=== PATIENT | female | born 1965 | race Asian ===

== ENCOUNTER 2019-12-26 02:53 | Inpatient (IN) | payer MEDICAID ==
[~2019-12-26] VITALS: Ht 157.5 cm; Wt 65.0 kg
[2019-12-26] MEDS ORDERED: LORazepam 2 MG TABLET PO PRN (03:45)
[2019-12-26] MEDS ORDERED: ZOLPIDEM TARTRATE 10 MG TABLET PO PRN (03:45)
[2019-12-26] MEDS ORDERED: HALOPERIDOL 5 MG TABLET PO PRN (03:45)
[2019-12-26 04:00] VITALS: BP 131/86
[2019-12-26] MEDS ORDERED: INFLUENZA VIRUS VACCINE QVS 2020-21 (6MO+)/PF 60 MCG/0.5 ML SYRINGE IM ONE (07:30)
[2019-12-26] MEDS ORDERED: MAGNESIUM HYDROXIDE SUSPENSION 30 ML UDCUP PO PRN (07:45)
[2019-12-26] MEDS ORDERED: NICOTINE 14 MG/24 HOUR PATCH TD PRN (07:45)
[2019-12-26] MEDS ORDERED: MAG HYDROX/AL HYDROX/SIMETH ES 30 ML SUSPENSION UDCUP PO PRN (07:45)
[2019-12-26] MEDS ORDERED: IBUPROFEN 400 MG TABLET PO PRN (07:45)
[2019-12-26] MEDS ORDERED: ACETAMINOPHEN 325 MG TABLET PO PRN (07:45)
[2019-12-26] MEDS ORDERED: CloNIDine HCL 0.1 MG TABLET PO PRN (07:45)
[2019-12-26] MEDS ORDERED: ONDANSETRON HCL 4 MG TABLET PO PRN (07:45)
[2019-12-26] MEDS ORDERED: PETROLATUM,WHITE 28 GM JELLY TP PRN (07:45)
[2019-12-26] MEDS ORDERED: GuaiFENesin/D-METHORPHAN [SUGAR-FREE] 200-20MG/10 ML SYRUP UDCUP PO PRN (07:45)
[2019-12-26] MEDS ORDERED: ALBUTEROL SULFATE HFA 90 MCG/PUFF 8 GM INHALER IH PRN (07:45)
[2019-12-26] MEDS: CEPHALEXIN MONOHYDRATE 500 MG CAPSULE PO SCH ×3 (08:57→16:52)
[2019-12-26] MEDS: CITALOPRAM HYDROBROMIDE 10 MG TABLET PO SCH (12:56)
[2019-12-26] MEDS ORDERED: HYPROMELLOSE 0.5% 15 ML OPHTHALMIC SOLUTION OU PRN (14:00)
[2019-12-27 07:44] LABS: BASOPHILS % (AUTO) 1.4 % (0.0-2.0); EOSINOPHILS % (AUTO) 2.4 % (1.0-6.0); HEMATOCRIT 41.6 % (36-46); LYMPHOCYTES % (AUTO) 28.3 % (22.0-44.0); MEAN CORPUSCULAR HEMOGLOBIN 30.6 pg (26.0-34.0); MEAN CORPUSCULAR HGB CONC 33.5 G/dL (31.0-37.0); MEAN CORPUSCULAR VOLUME 91 fL (80-100); MONOCYTES # (AUTO) 0.5 K/uL (0.1-1.0); MONOCYTES % (AUTO) 6.7 % (2.0-9.0); NEUTROPHILS # (AUTO) 4.3 K/uL (1.8-7.7); NEUTROPHILS % (AUTO) 61.2 % (40.0-70.0); PLATELET COUNT (AUTO) 342 K/uL (150-450); RED BLOOD CELL COUNT(AUTO) 4.57 MIL/uL (4.00-5.20); RED CELL DISTRIBUTION WIDTH 13.1 % (11.5-14.5)
[2019-12-27 08:07] LABS: ALANINE AMINOTRANSFERASE 46 U/L (12-78); ALBUMIN 3.7 g/dL (3.4-5.0); ALKALINE PHOSPHATASE 125 U/L (46-116); ANION GAP 8 mmol/L (8-16); ASPARTATE AMINOTRANSFERASE 22 U/L (15-37); BILIRUBIN,TOTAL 1.2 mg/dL (0.1-1.0); CALCIUM, TOTAL 8.3 mg/dL (8.8-10.5); CARBON DIOXIDE 25 mmol/L (22-29); CHLORIDE 106 mmol/L (98-107); CHOL/HDL RATIO 5.3 (3.9-5.7); CHOLESTEROL 207 mg/dL (131-200); CREATININE 0.88 mg/dL (0.60-1.30); GLOMERULAR FILTR. RATE CALC > 60 mL/min (>60); GLUCOSE,RANDOM 102 mg/dL (70-110); HDL CHOLESTEROL 39 mg/dL (40-60); LDL CHOL (CALC.) 148 mg/dL (0-130); POTASSIUM 4.1 mmol/L (3.5-5.1); SODIUM SERUM 139 mmol/L (136-145); TOTAL PROTEIN, SERUM 6.8 g/dL (6.4-8.2); TRIGLYCERIDES 102 mg/dL (15-150); UREA NITROGEN, BLOOD 29 mg/dL (7-18)
[2019-12-27 08:31] LABS: FREE T4 (FREE THYROXINE) 0.94 ng/dL (0.76-1.46); THYROID STIMULATING HORMONE 0.94 uIU/mL (0.36-3.74)
[2019-12-27] MEDS: CITALOPRAM HYDROBROMIDE 10 MG TABLET PO SCH (08:39)
[2019-12-27] MEDS: CEPHALEXIN MONOHYDRATE 500 MG CAPSULE PO SCH ×3 (08:39→16:50)
[2019-12-28] MEDS: CITALOPRAM HYDROBROMIDE 10 MG TABLET PO SCH (09:43)
[2019-12-28] MEDS: CEPHALEXIN MONOHYDRATE 500 MG CAPSULE PO SCH ×3 (09:43→16:26)
[2019-12-29] MEDS: CITALOPRAM HYDROBROMIDE 10 MG TABLET PO SCH (08:10)
[2019-12-29] MEDS: CEPHALEXIN MONOHYDRATE 500 MG CAPSULE PO SCH ×3 (08:10→16:54)
[2019-12-29] MEDS: DiphenhydrAMINE HCL 25 MG CAPSULE PO SCH (16:54)
[2019-12-30 08:40] VITALS: BP 108/67
[2019-12-30] MEDS: CEPHALEXIN MONOHYDRATE 500 MG CAPSULE PO SCH ×3 (10:24→16:40)
[2019-12-30] MEDS: DiphenhydrAMINE HCL 25 MG CAPSULE PO SCH ×2 (10:24→16:40)
[2019-12-30] MEDS: CITALOPRAM HYDROBROMIDE 10 MG TABLET PO SCH (10:24)
[2019-12-31] MEDS: DiphenhydrAMINE HCL 25 MG CAPSULE PO SCH ×2 (08:37→16:17)
[2019-12-31] MEDS: CITALOPRAM HYDROBROMIDE 20 MG TABLET PO SCH (08:37)
[2020-01-01] MEDS: CITALOPRAM HYDROBROMIDE 20 MG TABLET PO SCH (08:21)
[2020-01-01] MEDS: DiphenhydrAMINE HCL 25 MG CAPSULE PO SCH ×2 (08:21→16:41)
[2020-01-02] MEDS: CITALOPRAM HYDROBROMIDE 20 MG TABLET PO SCH (09:00)
[2020-01-02] MEDS: DiphenhydrAMINE HCL 25 MG CAPSULE PO SCH ×2 (09:00→16:26)
[2020-01-02 16:21] VITALS: BP 130/76
[2020-01-03] MEDS: DiphenhydrAMINE HCL 25 MG CAPSULE PO SCH ×2 (08:27→16:10)
[2020-01-03] MEDS: CITALOPRAM HYDROBROMIDE 20 MG TABLET PO SCH (08:27)
[2020-01-04] MEDS: CITALOPRAM HYDROBROMIDE 20 MG TABLET PO SCH (08:35)
[2020-01-04] MEDS: DiphenhydrAMINE HCL 25 MG CAPSULE PO SCH ×2 (08:35→17:03)
[2020-01-05 08:24] VITALS: BP 109/68
[2020-01-05] MEDS: CITALOPRAM HYDROBROMIDE 20 MG TABLET PO SCH (08:38)
[2020-01-05] MEDS: DiphenhydrAMINE HCL 25 MG CAPSULE PO SCH ×2 (08:38→16:22)
[2020-01-06] MEDS: DiphenhydrAMINE HCL 25 MG CAPSULE PO SCH ×2 (09:07→16:06)
[2020-01-06] MEDS: CITALOPRAM HYDROBROMIDE 20 MG TABLET PO SCH (09:07)
[2020-01-07] MEDS: CITALOPRAM HYDROBROMIDE 20 MG TABLET PO SCH (08:40)
[2020-01-07] MEDS: DiphenhydrAMINE HCL 25 MG CAPSULE PO SCH ×2 (08:40→16:33)
[2020-01-08] MEDS: CITALOPRAM HYDROBROMIDE 20 MG TABLET PO SCH (08:09)
[2020-01-08] MEDS: DiphenhydrAMINE HCL 25 MG CAPSULE PO SCH ×2 (08:09→16:31)
[2020-01-08] MEDS: CIPROFLOXACIN HCL 0.3% 3.5 GM OPHTHALMIC OINTMENT OD SCH ×3 (10:02→16:32)
[2020-01-09] MEDS: DiphenhydrAMINE HCL 25 MG CAPSULE PO SCH ×2 (09:01→16:48)
[2020-01-09] MEDS: CITALOPRAM HYDROBROMIDE 20 MG TABLET PO SCH (09:01)
[2020-01-09] MEDS: CIPROFLOXACIN HCL 0.3% 3.5 GM OPHTHALMIC OINTMENT OD SCH ×3 (10:49→16:49)
[2020-01-09] MEDS: HYDROCORTISONE 1% 30 GM OINTMENT TP SCH (16:48)
[2020-01-10] MEDS: DiphenhydrAMINE HCL 25 MG CAPSULE PO SCH ×2 (08:25→16:33)
[2020-01-10] MEDS: CITALOPRAM HYDROBROMIDE 20 MG TABLET PO SCH (08:25)
[2020-01-10] MEDS: CIPROFLOXACIN HCL 0.3% 3.5 GM OPHTHALMIC OINTMENT OD SCH ×3 (08:26→16:34)
[2020-01-10] MEDS: HYDROCORTISONE 1% 30 GM OINTMENT TP SCH (08:50)
[2020-01-11] MEDS: DiphenhydrAMINE HCL 25 MG CAPSULE PO SCH ×2 (08:49→16:09)
[2020-01-11] MEDS: CITALOPRAM HYDROBROMIDE 20 MG TABLET PO SCH (08:49)
[2020-01-11] MEDS: CIPROFLOXACIN HCL 0.3% 3.5 GM OPHTHALMIC OINTMENT OD SCH ×3 (08:50→16:10)
[2020-01-11] MEDS: HYDROCORTISONE 1% 30 GM OINTMENT TP SCH (08:50)
[2020-01-12 09:38] VITALS: BP 103/64
[2020-01-12] MEDS: DiphenhydrAMINE HCL 25 MG CAPSULE PO SCH ×2 (09:58→17:02)
[2020-01-12] MEDS: CITALOPRAM HYDROBROMIDE 20 MG TABLET PO SCH (09:58)
[2020-01-12] MEDS: HYDROCORTISONE 1% 30 GM OINTMENT TP SCH (09:59)
[2020-01-12] MEDS: CIPROFLOXACIN HCL 0.3% 3.5 GM OPHTHALMIC OINTMENT OD SCH ×3 (11:04→17:08)
[2020-01-13] MEDS: CITALOPRAM HYDROBROMIDE 20 MG TABLET PO SCH (09:23)
[2020-01-13] MEDS: DiphenhydrAMINE HCL 25 MG CAPSULE PO SCH ×2 (09:23→16:52)
[2020-01-13] MEDS: CIPROFLOXACIN HCL 0.3% 3.5 GM OPHTHALMIC OINTMENT OD SCH ×3 (09:24→17:00)
[2020-01-13] MEDS: HYDROCORTISONE 1% 30 GM OINTMENT TP SCH (09:25)
[2020-01-14] MEDS: CITALOPRAM HYDROBROMIDE 20 MG TABLET PO SCH (08:43)
[2020-01-14] MEDS: DiphenhydrAMINE HCL 25 MG CAPSULE PO SCH ×2 (08:43→16:22)
[2020-01-14] MEDS: CIPROFLOXACIN HCL 0.3% 3.5 GM OPHTHALMIC OINTMENT OD SCH ×3 (08:45→16:22)
[2020-01-14] MEDS: HYDROCORTISONE 1% 30 GM OINTMENT TP SCH (08:45)
[2020-01-15] MEDS: DiphenhydrAMINE HCL 25 MG CAPSULE PO SCH ×2 (08:40→16:58)
[2020-01-15] MEDS: CITALOPRAM HYDROBROMIDE 20 MG TABLET PO SCH (08:40)
[2020-01-15] MEDS: HYDROCORTISONE 1% 30 GM OINTMENT TP SCH (08:41)
[2020-01-15] MEDS: CIPROFLOXACIN HCL 0.3% 3.5 GM OPHTHALMIC OINTMENT OD SCH ×3 (08:41→16:58)
[2020-01-16] MEDS: DiphenhydrAMINE HCL 25 MG CAPSULE PO SCH ×2 (08:06→16:11)
[2020-01-16] MEDS: CITALOPRAM HYDROBROMIDE 20 MG TABLET PO SCH (08:06)
[2020-01-16] MEDS: HYDROCORTISONE 1% 30 GM OINTMENT TP SCH (08:15)
[2020-01-16] MEDS: CIPROFLOXACIN HCL 0.3% 3.5 GM OPHTHALMIC OINTMENT OD SCH ×3 (08:15→16:11)
[2020-01-17] MEDS: CITALOPRAM HYDROBROMIDE 20 MG TABLET PO SCH (08:33)
[2020-01-17] MEDS: DiphenhydrAMINE HCL 25 MG CAPSULE PO SCH ×2 (08:33→16:26)
[2020-01-17] MEDS: CIPROFLOXACIN HCL 0.3% 3.5 GM OPHTHALMIC OINTMENT OD SCH ×3 (08:34→16:27)
[2020-01-17] MEDS: HYDROCORTISONE 1% 30 GM OINTMENT TP SCH (08:34)
[2020-01-18 08:06] LABS: APPEARANCE,URINE CLEAR (CLEAR); BILIRUBIN,URINE NEGATIVE (NEGATIVE); GLUCOSE, URINE (UA) NEGATIVE (NEGATIVE); KETONES,URINE NEGATIVE (NEGATIVE); LEUKOCYTE ESTERASE ,URINE SMALL (NEGATIVE); NITRATE,URINE NEGATIVE (NEGATIVE); OCCULT BLOOD,URINE NEGATIVE (NEGATIVE); PH,URINE 7.5 (5.0-8.0); PROTEIN,URINE NEGATIVE (NEGATIVE); UROBILINOGEN,URINE 0.2 mg/dL (<=1.0)
[2020-01-18 08:12] LABS: BACTERIA,URINE None Seen /HPF (None Seen); RBC,URINE None Seen /HPF (0-2); SQUAMOUS EPITHELIAL CELL,UR Rare /LPF (None Seen)
[2020-01-18 08:52] VITALS: BP 127/73
[2020-01-18] MEDS: DiphenhydrAMINE HCL 25 MG CAPSULE PO SCH ×2 (08:52→16:36)
[2020-01-18] MEDS: CITALOPRAM HYDROBROMIDE 20 MG TABLET PO SCH (08:52)
[2020-01-18] MEDS: HYDROCORTISONE 1% 30 GM OINTMENT TP SCH (08:53)
[2020-01-19] MEDS: DiphenhydrAMINE HCL 25 MG CAPSULE PO SCH (09:00)
[2020-01-19] MEDS: CITALOPRAM HYDROBROMIDE 20 MG TABLET PO SCH (09:00)
[2020-01-19] MEDS: HYDROCORTISONE 1% 30 GM OINTMENT TP SCH (09:03)
[2020-01-19] MEDS ORDERED: CITA-144 PO (11:52)
[2020-01-19] MEDS ORDERED: DIPH50 PO (11:55)
== END 2020-01-19 13:00 | disposition home or self-care (01) | DRG 751 ==
LOC: B2S 02:53
PROVIDERS: ADMIT Psychiatry & Neurology Psychiatry; ATTEND Psychiatry & Neurology Psychiatry
DX: F33.2 Major depressive disorder, recurrent severe without psychotic features (principal); K59.00 Constipation, unspecified; N39.0 Urinary tract infection, site not specified; R45.851 Suicidal ideations; G89.29 Other chronic pain; F41.9 Anxiety disorder, unspecified; M54.9 Dorsalgia, unspecified; Z59.0 Homelessness; Z28.21 Immunization not carried out because of patient refusal; Z91.013 Allergy to seafood; Z91.018 Allergy to other foods
CPT/HCPCS: 83036; 84439; 84443